=== PATIENT | female | born 1990 | race Asian ===

== ENCOUNTER 2019-04-30 16:01 | Outpatient (CLI) | payer BC ==
--- NOTE | 2019-04-30 17:41 | ULT ---
ULTRASOUND LEFT BREAST LIMITED: 04/30/2019 HISTORY: A 28-year-old female with a palpable lump in the left breast. TECHNIQUE: A focused ultrasound of the area of the palpable lump at the left lower outer quadrant. FINDINGS: At the 4 o'clock position, 2 cm from the nipple, there is a 1.2 x 1 x 0.7 cm solid mass, with circums cribed margins. It is wider than tall and does not produce acoustic shadowing. It has heterogeneous internal echogenicity with regions of intermediate echogenicity interspersed with hypoechoic regions . The possibilities include fibroadenoma versus breast cancer. Ultrasound guided core biopsy is rec ommended. This was discussed with the patient immediately after the ultrasound and then by telephone with Irma Sahu's education assistant, Kelly Guzman, by telephone, at 4:25 p.m., on 04/30/2019. IMPRESSION: 1. BI-RADS 4-Suspicious. Biopsy should be considered. 2. Recommend ultrasound guided biopsy of the solid mass at the 4 o'clock position of the anterior le ft lower outer quadrant. POS: DARINEL
== END 2019-04-30 16:02 | disposition home or self-care (01) ==
LOC: BICULT 16:01
PROVIDERS: ATTEND Physician Assistant
DX: N63.23 Unspecified lump in the left breast, lower outer quadrant (principal)

== ENCOUNTER → 2019-05-08 | Day surgery (SDC) | payer BC ==
--- NOTE | 2019-05-08 13:43 | ULT ---
ULTRASOUND GUIDED LEFT BREAST BIOPSY 05/08/19 PROVIDED CLINICAL HISTORY: Left breast mass. FINDINGS: Informed consent was obtained from the patient. Correlation was made with a breast ultrasound of . The previously described left breast mass at the 4 o'clock location of the left breast was locali zed sonographically. The area overlying this region was prepped and draped in the usual sterile jessica r. Soft tissues were infiltrated with 1% buffered lidocaine. Under continuous sonographic guidance, a 14 gauge core biopsy device was advanced adjacent to the lesion and four core samples were obtained. Subsequently, under continuous sonographic guidance, a biopsy clip deployment device was advanced a djacent to the lesion and clip deployed. Lyman were withdrawn and hemostasis achieved. No immediate complications. Post biopsy mammograms demonstrate clip deployment. IMPRESSION: Technically successful ultrasound guided left breast biopsy. Please correlate with histology results to follow. POS: OFF
--- NOTE | 2019-05-09 15:27 | MMO ---
Left Breast MAMMO Unilat Diag DDI LT. CLINICAL HISTORY: Patient is 28 years old and is seen for breast biopsy. VIEWS: The views performed were: . FILMS COMPARED: The present examination has been compared to a prior imaging study performed at [facility] on 04/30/2019. MAMMOGRAM FINDINGS: The breast is extremely dense, which may lower the sensitivity of mammography. There is a biopsy clip seen in the left breast. IMPRESSION: BIOPSY CLIP IN THE LEFT BREAST IS CONFIRMED UTILIZING POST PROCEDURE MAMMOGRAM. THE RESULTS OF THIS EXAM WERE SENT TO THE PATIENT. MAMMOGRAPHY NOTE: 1. A negative mammogram report should not delay a biopsy if a dominant of clinically suspicious mass is present. 2. Approximately 10% to 15% of breast cancers are not detected by mammography. 3. Adenosis and dense breasts may obscure an underlying neoplasm. Reported by: KEY STALLWORTH MD Electonically Signed: [id number]
== END ==
LOC: BICULT 12:31
PROVIDERS: ATTEND Advanced Practice Midwife
PROC: 0HBU3ZX Excision of Left Breast, Percutaneous Approach, Diagnostic (ICD-10-PCS; principal; 2019-05-08)
DX: N63.23 Unspecified lump in the left breast, lower outer quadrant (principal)
CPT/HCPCS: 19083; 88305; 88312; 88313; 88341; 88342